=== PATIENT | female | born 1995 | race Caucasian/White ===

== ENCOUNTER 2021-07-24 09:48 | Outpatient (CLI) | payer OTHER ==
[2021-07-24 14:27] LABS: Hemoglobin 12.7 g/dL (12.0-15.5); Mean Corpuscular HGB CONC 31.8 g/dL (32.0-36.0); Mean Corpuscular Hemoglobin 26.1 pg (27.0-33.0); Mean Corpuscular Volume 82.1 fl (81.6-98.3); Mean Platelet Volume 11.9 fl (7.4-10.4); Platelet Count 241 10x3/uL (150-450); RBC Distribution Width 15.1 % (11.5-14.5); Red Blood Cell (RBC) Count 4.87 10x6/uL (3.90-5.03); White Blood Cell (WBC) Count 12.2 10x3/uL (3.5-10.5)
[2021-07-24 15:24] LABS: Syphilis Antibody Nonreactive (Nonreactive); Syphilis Antibody Index 0.07 S/CO (<1.00 Non-Reactive)
[2021-07-24 15:26] LABS: Hep B Surf Ag Non-Reactive S/CO (NonReactive)
[2021-07-24 15:32] LABS: HBSAg Index 0.15 S/CO (0-0.99)
== END 2021-07-24 09:49 | disposition home or self-care (01) ==
LOC: CSHLD/OP 09:48
PROVIDERS: ATTEND Family Medicine
DX: Z01.812 Encounter for preprocedural laboratory examination (principal); Z20.822 Contact with and (suspected) exposure to COVID-19
CPT/HCPCS: 85027; 86780; 86900; 86901; 87340; U0003; U0005

== ENCOUNTER 2021-07-25 09:00 | Inpatient (IN) | payer OTHER ==
[2021-07-28] MEDS ORDERED: Ondansetron PF 4 MG/2 ML Vial IVP PRN ×3 (05:58→10:14)
[2021-07-28] MEDS ORDERED: ceFAZolin 2 GM/Dextrose 50 ML 2 GM in Premix Bag 1 BAG IVPB SCH (05:58)
[2021-07-28] MEDS ORDERED: Promethazine HCl 25 MG/ML VIAL IM PRN ×3 (05:58→10:14)
[2021-07-28] MEDS ORDERED: Bicitra 30 ML UDCUP PO PRN (05:58)
[2021-07-28] MEDS ORDERED: Famotidine/PF 20 mg/2ml Vial SLOW IVP PRN (05:58)
[2021-07-28] MEDS ORDERED: hydrALAZINE 20 MG/ML VIAL SLOW IVP PRN ×2 (05:58→10:14)
[2021-07-28 05:59] VITALS: BMI 40.3
[2021-07-28] MEDS ORDERED: Lactated Ringer's 1,000 ML IV SCH (06:00)
[2021-07-28] MEDS ORDERED: Meperidine HCl/PF 25 MG/ML VIAL SLOW IVP PRN (06:58)
[2021-07-28] MEDS ORDERED: Promethazine HCl 25 MG SUPP PR PRN (06:58)
[2021-07-28] MEDS ORDERED: HYDROmorphone 2 MG/ML VIAL SLOW IVP PRN (06:58)
[2021-07-28] MEDS ORDERED: Fentanyl 100 MCG/2 ML VIAL SLOW IVP PRN (06:58)
[2021-07-28] MEDS ORDERED: Naloxone HCl 0.4 mg/ml Vial IV PRN (06:58)
[2021-07-28] MEDS ORDERED: Moisturizing Cream (Eucerin) 113 GM JAR TOP PRN (06:58)
[2021-07-28] MEDS ORDERED: Ketorolac Tromethamine 30 MG/ML VIAL IVP PRN (06:58)
[2021-07-28] MEDS ORDERED: diphenhydrAMINE 50 MG/ML VIAL IVP PRN (06:58)
[2021-07-28] MEDS ORDERED: Naloxone HCl 0.4 mg/ml Vial IVP PRN ×2 (06:58)
[2021-07-28] MEDS ORDERED: Ondansetron HCl/PF 4 MG/2 ML Vial IVP PRN (06:58)
[2021-07-28] MEDS ORDERED: Ketorolac Tromethamine 30 MG/ML VIAL IVP SCH (07:00)
[2021-07-28] MEDS ORDERED: CEFAZOLIN 2 GM in Sodium Chloride 0.9% 100 ML IVPB SCH (07:00)
[2021-07-28] MEDS ORDERED: Communication Order-Pharmacy FS SCH (07:00)
[2021-07-28] MEDS ORDERED: Morphine PF 10 MG/10 ML VIAL ONE (07:05)
[2021-07-28] MEDS ORDERED: Fentanyl 100 MCG/2 ML VIAL ONE (07:05)
[2021-07-28] MEDS ORDERED: Oxytocin 10 UNITS/ML VIAL ONE ×3 (07:06→07:50)
[2021-07-28] MEDS ORDERED: Phenylephrine 10 MG/ML VIAL ONE (07:06)
[2021-07-28] MEDS ORDERED: diphenhydrAMINE 50 MG/ML VIAL ONE ×2 (08:03)
[2021-07-28] MEDS ORDERED: Butorphanol Tartrate 1 MG/ML VIAL ONE (08:24)
[2021-07-28] MEDS ORDERED: diphenhydrAMINE 25 MG CAP PO PRN (10:14)
[2021-07-28] MEDS ORDERED: Lanolin Ointment 7 GM TUBE TOP PRN (10:14)
[2021-07-28] MEDS ORDERED: Bisacodyl 10 MG SUPP PR PRN (10:14)
[2021-07-28] MEDS ORDERED: NS w/ Oxytocin 30 units 500 ML IV SCH (10:14)
[2021-07-28] MEDS ORDERED: Boostrix 0.5 ML (Tdap) VIAL IM ONE (10:14)
[2021-07-28] MEDS ORDERED: HYDROcodone/Acetaminophen 5/325 mg Tablet PO PRN ×2 (10:14)
[2021-07-28] MEDS ORDERED: Simethicone Chewable 80 MG TAB PO PRN (10:14)
[2021-07-28] MEDS ORDERED: Docusate 100 MG CAP PO SCH (11:00)
[2021-07-28] MEDS ORDERED: Prenatal Vitamin 1 TAB PO SCH (11:00)
[2021-07-28] MEDS ORDERED: Ferrous Sulfate 325 MG TAB PO SCH (11:00)
[2021-07-28 11:07] LABS: HIV (1/2) Antibody/Antigen Non-Reactive (NonReactive); HIV 1/2 INDEX 0.06 S/CO (<1.00)
[2021-07-28] MEDS: Ketorolac Tromethamine 30 MG/ML VIAL IVP SCH (17:49)
[2021-07-28] MEDS: Ferrous Sulfate 325 MG TAB PO SCH (19:24)
[2021-07-29] MEDS: Ketorolac Tromethamine 30 MG/ML VIAL IVP SCH ×2 (00:47→05:59)
[2021-07-29] MEDS: Docusate 100 MG CAP PO SCH ×3 (00:52→22:19)
[2021-07-29 03:58] LABS: Hemoglobin 11.4 g/dL (12.0-15.5); Mean Corpuscular HGB CONC 31.3 g/dL (32.0-36.0); Mean Corpuscular Hemoglobin 25.9 pg (27.0-33.0); Mean Corpuscular Volume 82.5 fl (81.6-98.3); Mean Platelet Volume 11.2 fl (7.4-10.4); Platelet Count 220 10x3/uL (150-450); Red Blood Cell (RBC) Count 4.41 10x6/uL (3.90-5.03); White Blood Cell (WBC) Count 12.4 10x3/uL (3.5-10.5)
[2021-07-29] MEDS: Ferrous Sulfate 325 MG TAB PO SCH ×2 (07:43→22:28)
[2021-07-29] MEDS: Prenatal Vitamin 1 TAB PO SCH (08:47)
[2021-07-29] MEDS: Ibuprofen 800 MG TAB PO SCH ×2 (14:12→22:18)
[2021-07-30] MEDS: Ibuprofen 800 MG TAB PO SCH ×2 (05:11→13:48)
[2021-07-30 07:44] VITALS: BP 113/57; TEMP 98
[2021-07-30] MEDS: Docusate 100 MG CAP PO SCH (08:46)
[2021-07-30] MEDS: Prenatal Vitamin 1 TAB PO SCH (08:46)
[2021-07-30] MEDS: Ferrous Sulfate 325 MG TAB PO SCH (08:53)
== END 2021-07-30 17:00 | disposition home or self-care (01) | DRG 788 ==
LOC: CSHLD 07-28 05:30 → CSHPP 07-28 09:53
PROVIDERS: ADMIT Family Medicine; ATTEND Family Medicine
PROC: 10D00Z1 Extraction of Products of Conception, Low, Open Approach (ICD-10-PCS; principal; 2021-07-28)
DX: O34.211 Maternal care for low transverse scar from previous cesarean delivery (principal); Z37.0 Single live birth; Z3A.39 39 weeks gestation of pregnancy
CPT/HCPCS: 36415; 51702; 85027; 86850; 86900; 86901; 87389; J0690; J1200; J1885; J2274; J2370; J2590; J3010; J3490

== ENCOUNTER 2023-08-25 12:53 | Inpatient (IN) | payer OTHER ==
[2023-08-25 13:42] VITALS: BMI 42.3
[2023-08-25 16:30] LABS: Hematocrit 40.6 % (34.9-44.5); Hemoglobin 13.6 g/dL (12.0-15.5); Mean Corpuscular HGB CONC 33.5 g/dL (32.0-36.0); Mean Corpuscular Hemoglobin 27.2 pg (27.0-33.0); Mean Corpuscular Volume 81.2 fL (81.6-98.3); Mean Platelet Volume 10.4 fL (7.4-10.4); Platelet Count 237 10x3/uL (150-450); RBC Distribution Width 14.9 % (11.5-14.5); White Blood Cell (WBC) Count 13.6 10x3/uL (3.5-10.5)
[2023-08-25 17:15] LABS: HBsAg Index 0.15 S/CO (0-0.99); Hep B Surf Ag - L&D Non-Reactive S/CO (NonReactive); Syphilis Antibody Nonreactive (Nonreactive); Syphilis Antibody Index 0.08 S/CO (<1.00 Non-Reactive)
[2023-08-26 04:17] LABS: Hematocrit 32.6 % (34.9-44.5); Hemoglobin 10.4 g/dL (12.0-15.5); Mean Corpuscular HGB CONC 31.9 g/dL (32.0-36.0); Mean Corpuscular Hemoglobin 26.4 pg (27.0-33.0); Mean Corpuscular Volume 82.7 fL (81.6-98.3); Mean Platelet Volume 10.9 fL (7.4-10.4); Platelet Count 222 10x3/uL (150-450); RBC Distribution Width 14.8 % (11.5-14.5); Red Blood Cell (RBC) Count 3.94 10x6/uL (3.90-5.03); White Blood Cell (WBC) Count 16.2 10x3/uL (3.5-10.5)
[2023-08-28 08:26] VITALS: BP 130/82; TEMP 98.4
== END 2023-08-28 14:20 | disposition home or self-care (01) | DRG 788 ==
LOC: CSHLD/OP 12:53 → CSHLD 16:04 → CSHPP 20:25
PROVIDERS: ADMIT Family Medicine; ATTEND Family Medicine
PROC: 10D00Z1 Extraction of Products of Conception, Low, Open Approach (ICD-10-PCS; principal; 2023-08-25)
DX: O34.211 Maternal care for low transverse scar from previous cesarean delivery (principal); O76 Abnormality in fetal heart rate and rhythm complicating labor and delivery; Z3A.37 37 weeks gestation of pregnancy; Z37.0 Single live birth; Z79.82 Long term (current) use of aspirin
CPT/HCPCS: 51702; 76819; 85027; 86780; 86850; 86900; 86901; 87340; 99285; J1100; J1885; J2274; J2405; J2590